=== PATIENT | male | born 1975 | race Caucasian/White ===

== ENCOUNTER 2017-05-05 07:49 | Emergency (ER) | payer BC ==
[~2017-05-05] VITALS: Ht 172.7 cm; Wt 107.0 kg
[2017-05-05 07:53] VITALS: BP 130/75; PULSE 87; RESP 16; TEMP 98.2; O2SAT 97
[2017-05-05] MEDS ORDERED: HYDR-3534 PO (08:10)
[2017-05-05] MEDS ORDERED: INDO25CA PO (08:10)
--- NOTE | 2017-05-05 08:10 | PD ---
HPI Chief Complaint: Musculoskeletal Complaint Time Seen by Provider: 07:57 Travel History International Travel<30 days: No Contact w/Intl Traveler<30days: No Traveled to known affect area: No History of Present Illness HPI 41-year-old male is complaining of pain in his right great toe. He's been having the pain for about 8 days. It is quite severe and is fairly constant but seems to get worse at certain times. Has been keeping him awake at night. There is no history of trauma. He says that several months ago he had similar pain and was diagnosed with gout at that time. He does not take any medications. He has no allergies. PFSH Past Medical History Diminished Hearing: No Gastrointestinal Disorders: Yes (FATTY LIVER) Hiatal Hernia: Yes Social History Alcohol Use: Yes (2 BEERS PER MONTH) Tobacco Use: Yes (DIP) Substance Use: No Allergies-Medications (Allergen,Severity, Reaction): Coded Allergies: No Known Allergies (Verified Allergy, Unknown, 05/05/17) Review of Systems General / Constitutional: No: Fever, Chills Eyes: No: Diploplia HENT: No: Headaches Cardiovascular: No: Chest Pain or Discomfort, Palpitations Respiratory: No: Cough, Shortness of Breath Gastrointestinal: No: Vomiting, Diarrhea Genitourinary: No: Urgency, Frequency Musculoskeletal: Positive: Pain, No: Myalgias Neurologic: No: Weakness Physical Exam Narrative GENERAL: Well-developed male SKIN: Focused skin assessment warm/dry. HEAD: Atraumatic. Normocephalic. EYES: Pupils equal and round. No scleral icterus. No injection or drainage. ENT: No nasal bleeding or discharge. Mucous membranes pink and moist. NECK: Trachea midline. No JVD. GASTROINTESTINAL: Abdomen soft, non-tender, nondistended. Hepatic and splenic margins not palpable. MUSCULOSKELETAL: No obvious deformities. No clubbing. No cyanosis. There is swelling and tenderness of the right great toe at the metarsolphalangeal joint.. NEUROLOGICAL: Awake and alert. No obvious cranial nerve deficits. Motor grossly within normal limits. Normal speech. PSYCHIATRIC: Appropriate mood and affect; insight and judgment normal. Data Data Last Documented VS Vital Signs Date Time Temp Pulse Resp B/P (MAP) Pulse Ox O2 Delivery O2 Flow Rate FiO2 05/05/17 07:53 98.2 87 16 130/75 (93) 97 MDM Medical Decision Making Medical Screen Exam Complete: Yes Emergency Medical Condition: Yes Medical Record Reviewed: Yes Differential Diagnosis Differential includes acute gouty arthritis, traumatic pain, Narrative Course Examination history of consistent with acute gouty arthritis. The patient has no history of trauma or other problems. I will prescribe Indocin and also some Lortab for Couple of days until Indocin takes effect Diagnosis Primary Impression: Acute gouty arthritis Scripts Hydrocodone-Acetaminophen (Lortab) 7.5-325 Mg Tab 1 TAB PO Q4H Y for PAIN, #15 TAB 0 Refills Prov: Reginald Pisano MD 05/05/17 Indomethacin (Indomethacin) 25 Mg Cap 25 MG PO QID, #30 CAP 0 Refills Take with food, milk, or antacids to decrease stomach adverse effects. Prov: Reginald Pisano MD 05/05/17 Disposition: 01 DISCHARGE HOME Condition: Stable Reginald Pisano MD May 05, 2017 08:10
== END 2017-05-05 08:22 | disposition home or self-care (01) ==
LOC: PHED 07:49
DX: M10.9 Gout, unspecified (principal); Z72.0 Tobacco use; Z87.19 Personal history of other diseases of the digestive system; Z87.39 Personal history of other diseases of the musculoskeletal system and connective tissue
CPT/HCPCS: 99284

== ENCOUNTER 2017-05-20 07:33 | Emergency (ER) | payer BC ==
[~2017-05-20] VITALS: Ht 172.7 cm; Wt 108.3 kg
[~2017-05-20 07:33] MED LIST: HYDR-3534 PO; INDO25CA PO
[2017-05-20 07:36] VITALS: BP 129/75; PULSE 88; RESP 16; TEMP 98; O2SAT 98
[2017-05-20] MEDS ORDERED: HYDR-3534 PO (07:46)
[2017-05-20] MEDS ORDERED: INDO25CA PO (07:46)
--- NOTE | 2017-05-20 07:46 | PD ---
HPI Chief Complaint: Pain: Acute or Chronic Time Seen by Provider: 07:39 Travel History International Travel<30 days: No Contact w/Intl Traveler<30days: No Traveled to known affect area: No History of Present Illness HPI [age] year-old woman who presents emergent department with great toe pain on right foot. History of similar symptoms. Doubt episode several times in the past. Was treated several weeks ago and was resolved. Symptoms started again 2 days ago. No fevers or chills. No radiation of the pain. Took a Lortab last night which did help some. No other aggravating or alleviating factors. History Past Medical History Medical History: Denies Significant Hx Tetanus Vaccination: > 5 Years Influenza Vaccination: No Past Surgical History Surgical History: No Previous Surgery Social History Alcohol Use: Yes (occasional) Tobacco Use: No (+smokeless tobacco) Allergies-Medications (Allergen,Severity, Reaction): Coded Allergies: No Known Allergies (Verified Allergy, Unknown, 05/20/17) Reported Meds & Prescriptions Reported Meds & Active Scripts Active Indomethacin 25 Mg Cap 25 Mg PO QID Take with food, milk, or antacids to decrease stomach adverse effects. Lortab (Hydrocodone-Acetaminophen) 7.5-325 Mg Tab 1 Tab PO Q4H PRN Review of Systems Except as stated in HPI: all other systems reviewed are Neg Physical Exam Narrative GENERAL: Well-appearing 41 year-old woman, no acute distress. SKIN: Warm and dry. CARDIOVASCULAR: Warm and well perfused. RESPIRATORY: Normal rate and effort. MUSCULOSKELETAL: Focus examination the right foot reveals warmth and erythema about the first MTP joint. Minimal swelling. Pain with range of motion. Neurovascularly intact. NEUROLOGICAL: Awake and alert. No gross deficits. Data Data Last Documented VS Vital Signs Date Time Temp Pulse Resp B/P (MAP) Pulse Ox O2 Delivery O2 Flow Rate FiO2 05/20/17 07:41 16 05/20/17 07:36 98.0 88 129/75 (93) 98 Orders Orders Ed Discharge Order (05/20/17 07:46) MDM Medical Decision Making Medical Screen Exam Complete: Yes Emergency Medical Condition: Yes Differential Diagnosis Gout, infection, cellulitis, other Narrative Course Medical decision making 41-year-old with recurrent gout flare. Drinking alcohol occasionally. No clear precipitant. Looks well. Did well with indomethacin and Lortab in the past. We'll refill prescriptions. Diagnosis Primary Impression: Gout attack Additional Instructions: Take medications as prescribed. Return to the emergency department for any new or worsening symptoms. Follow-up with her primary doctor for repeat evaluation. Med/Other Pt SpecificInfo: Prescription(s) given Scripts Indomethacin (Indomethacin) 25 Mg Cap 25 MG PO QID, #30 CAP 0 Refills Take with food, milk, or antacids to decrease stomach adverse effects. Prov: Fam Smith MD 05/20/17 Hydrocodone-Acetaminophen (Lortab) 7.5-325 Mg Tab 1 TAB PO Q4H Y for PAIN, #15 TAB 0 Refills Prov: Fam Smith MD 05/20/17 Disposition: 01 DISCHARGE HOME Condition: Stable Fam Smith MD May 20, 2017 07:46
== END 2017-05-20 07:57 | disposition home or self-care (01) ==
LOC: PHED 07:33
DX: M10.9 Gout, unspecified (principal); M25.571 Pain in right ankle and joints of right foot
CPT/HCPCS: 99284